=== PATIENT | male | born 1960 | race Caucasian/White ===

== ENCOUNTER 2025-03-16 12:09 | Outpatient (AMB) | payer OTHER, SELFPAY ==
--- NOTE | 2025-03-16 12:12 | A.OFFPC_ITS ---
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: No Accompanied by: Self / Same As Patient Allergies No Known Allergies Allergy (Verified 03/16/25 12:15) Medication List - Last Reconciled 03/16/25 [facility] mg PO DAILY Tobacco use date assessed: 03/16/25 Fall risk assessment: No Falls in past year Last assessed Fall Risk: 03/16/25 Dental Screening Dental Screen Date: 03/16/25 Did you have a dental visit in the last 12 months?: No Did you have a dental problem in the last 6 months where you did not have access to dental care?: No Was dental information given to patient?: Patient declined HPI ENVIRONMENTAL COMPLIANCE SPECIALIST-PE HPI Details History of Present Illness The patient is a 65-year-old male presenting for a routine wellness visit and preventative care. He has a history of hepatitis C, which was diagnosed and apparently cleared. ? following a transfusion when he was younger. The condition has since resolved after seeing a liver specialist and undergoing a biopsy. A viral load will be obtained to confirm clearance. The patient has a history of smoking, having quit over 15 years ago, but he currently uses vaping products. He denies experiencing any chest pain, dyspnea, abdominal pain, hematochezia, constipation, or diarrhea. He is unsure about the timing of his next colonoscopy, which was previously performed at [place]. He denies any personal history of pancreatic or prostate cancer, and a PSA screening is planned as part of his preventative care. Health Maintenance - PSA screening planned - Colonoscopy follow-up to be determined Social History - Tobacco use: Former smoker, currently vapes Review of Systems - Cardiovascular: Denies chest pain - Respiratory: Denies dyspnea - Gastrointestinal: Denies abdominal rachel n, hematochezia, constipation, diarrhea denies any urinary issues, fevers, chills Physical Exam General: Cooperative, healthy appearing, comfortable, no acute distress and well developed Orientation: Patient oriented x3 Limitations: No limitations Head: Normal to inspection Ears: Hearing grossly normal bilaterally Nose: Normal external nose present Face and sinus: Normal facial exam Eyes: Appearance normal, both eyes and all related structures Neck: Normal visual inspection and Yes full ROM Respiratory: Normal respiratory effort and able to speak in complete sentences. Clear to auscultation bilaterally Cardiovascular: Regular rate and rhythm. Normal S1 and S2 GI: Normal to inspection. Soft to palpation and nontender : Testicles without masses/lesions and no hernias appreciated Skin: No rashes or lesions noted Neuro: Patient oriented x3 Extremities: Normal to inspection Results Plan The patient will undergo a PSA screening as part of his preventative care measures. This is to monitor for any potential prostate issues given his age and risk factors. A follow-up on his last colonoscopy is necessary to determine the appropriate timing for his next screening, as he is unsure of when it was last performed. He is encouraged to continue with regular health maintenance and to schedule fa sting labs in the near future to monitor his overall health status. Discussion Notes I discussed with the patient the importance of continuing with preventative care measures, including the PSA screening and determining the timing for his next colonoscopy. We also talked about the need for fasting labs to monitor his health status. I encouraged him to maintain regular health check-ups and to ankita ch out if he experiences any new symptoms or concerns. Patient Instructions - Schedule a PSA screening as discussed. - Follow up on the timing of your next c olonoscopy. - Plan to have fasting labs done soon. - Continue with regular health check-ups and contact us if you have any new symptoms or concerns. [facility] Surgical History History of ankle surgery Family History Mother No problems noted. Father No problems noted. Social History Housing: Apartment Patient Tobacco Use Status: Former Tobacco user Tobacco use type: Cigarette Cigarette Packs Per Day: 2 Cigarettes Per Day: 40 e-Cigarette/Vaping Use: Currently Using service: No Current occupational status: retired Current occupational exposures/hazards: No Cognitive needs: No Hearing needs: No Vision needs: No Questionnaire PHQ-9 Over the last 2 weeks, how often have you been bothered by any of the following problems? 1. Little interest or pleasure in doing things: not at all 2. Feeling down, depressed, or hopeless: not at all 3. Trouble falling or staying asleep, or sleeping too much: not at all 4. Feeling tired or having little energy: not at all 5. Poor appetite or overeating: not at all 6. Feeling bad about yourself - or that you are a failure or have let yourself or your family down: not at all 7. Trouble concentrating on things, such as reading the newspaper or watching television: not at all 8. Moving or speaking so slowly that other people could have noticed. Or the opposite - being so fidgety or restless that you have been moving around a lot more than usual: not at all 9. Thoughts that you would be better off or of hurting yourself in some way: not at all Total score: 0 Depression Screening Interpretation: Negative Depression Screening Done: Yes 87774 - PHQ-9 Billing: Yes Source: Developed by Drs. Akira Walker, Kym Parrish, Nba Westfall and colleagues, with an educational ethan from [employer]. Thrive Questionnaire Date Thrive assessed: 03/16/25 I am a: Patient What is your living situation today?: I have a steady place to live Within the past 12 months, did the food you bought not last and you didn't have the money to get more?: Often true Within the past 12 months, did you worry whether your food would run out before you got money to buy more?: Often true Do you have trouble paying for medicines?: No Do you have trouble getting transportation to medical appointments?: No Do you have trouble paying your heating and electricity bill?: No Do you have trouble taking care of your child, family member or friend?: No Do you have trouble with day-to-day activities such as bathing, preparing meals, shopping, managing finances, etc.?: No Are you currently unemployed and looking for a job?: No Are you interested in more education?: No Please select the resources that you would like help with: None Currently or been in a relationship where the following occur: No concerns reported THRIVE Score: 2 AUDIT C Alcohol Use Questionnaire (AUDIT-C) 1. How often do you have a drink containing alcohol?: Never 3. How often do you have six or more drinks on one occasion?: Never Total Score: 0 Score Reviewed/Action Taken: Yes SUSIE-7 AMB Questionnaire SUSIE-7 Date SUSIE - 7 assessed: 03/16/25 Feeling nervous, anxious, or on edge: 0 = Not at all Not being able to stop or control worryin = Not at all Worrying too much about different things: 0 = Not at all Trouble relaxin = Not at all Being so restless that it is hard to sit still: 0 = Not at all Becoming easily annoyed or irritable: 0 = Not at all Feeling afraid as if something awful might happen: 0 = Not at all Total SUSIE-7 score (0-4 normal; 5-9 mild; 10-14 moderate; 15-21 severe): 0 Source: Developed by Drs. Akira Walker, Kym Parrish, Nba Westfall and colleagues, with an educational ethan from [employer]. SUSIE-7 Assessment Billing SUSIE-7 Assessment Tool: SUSIE-7 Assessment 63426 Physical exam (Primary Care) Vital Signs: Last Vital Signs Pulse 79 03/16/25 12:14 Resp 16 03/16/25 12:14 BP 118/74 03/16/25 12:14 Pulse Ox 98 03/16/25 12:14 Oxygen Delivery Method Room Air 03/16/25 12:14 BMI result Body Mass Index 27.8 Tobacco/Smoking Status: Tobacco use Status Tobacco use date assessed 03/16/25 03/16/25 12:24 Patient Tobacco Use Status Former Tobacco user 03/16/25 12:21 Tobacco use type Cigarette 03/16/25 12:21 e-Cigarette/Vaping Use Currently Using 03/16/25 12:21 PHQ-9: PHQ-9 Score PHQ-9: Total score 0 03/16/25 12:40 Depression Screening Interpretation: Negative Thrive Assessment: Date of Thrive Assessment Date Thrive assessed 03/16/25 03/16/25 12:40 Currently or been in a relationship where the following occur: No concerns reported Coding Level of Care Code New Pt Prev Care >65yr (87979) Diagnoses Physical exam Z00.00 Screening for prostate cancer Z12.5 Vitamin D deficiency E55.9 Hepatitis C B19.20 Additional Codes SUSIE-7 Assessment Billing - SUSIE-7 Assessment Tool: SUSIE-7 Assessment 54191 ([id number]) PHQ-9 - 43718 - PHQ-9 Billing: Yes ([id number]) Assessment & Plan Assessment & Plan (1) Physical exam: Code(s): Z00.00 - Encounter for general adult medical examination without abnormal findings Category: Medical (2) Screening for prostate cancer: Code(s): Z12.5 - Encounter for screening for malignant neoplasm of prostate Category: Medical (3) Vitamin D deficiency: Code(s): E55.9 - Vitamin D deficiency, unspecified Category: Medical (4) Hepatitis C: Code(s): B19.20 - Unspecified viral hepatitis C without hepatic coma Category: Medical Plan . Orders: Orders Complete Blood Count Auto Diff Today Z00.00 - Encounter for general adult medical examination without abnormal findings Comprehensive [place]. Panel Fast Today Z00.00 - Encounter for general adult medical examination without abnormal findings UA CC w/rflx Micro + Cult Today Z00.00 - Encounter for general adult medical examination without abnormal findings Prostate Specific Antigen Scr Today Z12.5 - Encounter for screening for malignant neoplasm of prostate Vitamin D 25-OH Total Today E55.9 - Vitamin D deficiency, unspecified Hepatitis A,B,C Profile Today B19.20 - Unspecified viral hepatitis C without hepatic coma Hepatitis C Genotype Today B19.20 - Unspecified viral hepatitis C without hepatic coma TSH reflex Free T4 Today Z00.00 - Encounter for general adult medical examination without abnormal findings Lipid Panel Today Z00.00 - Encounter for general adult medical examination without abnormal findings Hepatitis C Viral Load Today B19.20 - Unspecified viral hepatitis C without hepatic coma
[2025-03-16 12:14] VITALS: BP 118/74; PULSE 79; RESP 16; O2SAT 98; BMI 27.8
== END 2025-03-16 13:43 | disposition home or self-care (01) ==
LOC: HO.HMCC 12:10
PROVIDERS: Visit Provider Nurse Practitioner Family
DX: Z00.00 Encounter for general adult medical examination without abnormal findings (principal); Z12.5 Encounter for screening for malignant neoplasm of prostate; E55.9 Vitamin D deficiency, unspecified; B19.20 Unspecified viral hepatitis C without hepatic coma

== ENCOUNTER → 2025-03-16 12:09 | Outpatient (BNVA) | payer OTHER, SELFPAY | PROVIDERS: Visit Provider Nurse Practitioner Family | DX: Z00.00 Encounter for general adult medical examination without abnormal findings (principal); E55.9 Vitamin D deficiency, unspecified; B19.20 Unspecified viral hepatitis C without hepatic coma; F17.290 Nicotine dependence, other tobacco product, uncomplicated | CPT/HCPCS: 96127; 99387 ==

== ENCOUNTER 2025-03-23 08:02 | Outpatient (REF) | payer OTHER, SELFPAY ==
[2025-03-23 10:21] LABS: Appearance Urine Clear; Glucose Urine UA Negative (Negative); PH 6.0 (5.0-9.0); Specific Gravity - Urine 1.010 (1.005-1.025); UMIC TRIGGER UACC YES
[2025-03-23 10:26] LABS: MANUAL DIFF FLAG NO
[2025-03-23 10:38] LABS: Hematocrit 43.3 % (42.0-52.0); Hemoglobin 15.1 g/dl (14.0-18.0); Imm Gran Abs Auto 0.03 X10*3/uL (0.00-0.03); Imm Gran Pct Auto 0.4 % (0.0-0.4); Lymphocytes Absolute Auto 1.8 X10*3/uL (1.2-4.9); Mean Corpuscular HGB Conc 34.9 g/dl (31.0-36.0); Mean Corpuscular Hemoglobin 30.6 pg (27.0-33.0); Mean Corpuscular Volume 87.8 fL (80.0-98.0); NRBC Abs Auto 0.000 X10*3/uL (0.0-0.012); NRBC Pct Auto 0.0 /100WBC (0.0-0.2); Platelet Count 246 X10*3/uL (160-400); Red Blood Count 4.93 X10*6/uL (4.60-5.80); White Blood Count 7.2 X10*3/uL (4.8-10.8)
[2025-03-23 11:17] LABS: Alanine Aminotransferase 20 U/L (0-40); Albumin Level 4.5 g/dL (3.5-5.0); Alkaline Phosphatase 53 U/L (39-117); Anion Gap 11 (12-20); Aspartate Amino Transferase 34 U/L (5-37); Blood Urea Nitrogen 11 mg/dL (9-16); Calcium 9.3 mg/dL (8.4-10.2); Carbon Dioxide 28 mmol/L (22-29); Chloride 107 mmol/L (96-108); Cholesterol 196 mg/dL (<200); Estimated Glomerular Filt Rate > 60; HDL Cholesterol 38 mg/dL (>40); Potassium 4.2 mmol/L (3.3-5.1); Sodium 142 mmol/L (135-145); Total Protein 7.1 g/dL (6.5-8.0); Triglycerides 178 mg/dL (<150)
[2025-03-23 11:35] LABS: HBS Num1 0.18 mIU/mL (0-7.99); HBc Num1 0.06 S/CO (0.00-0.79); HBsAGNum1 0.42 S/CO (0.00-0.99); Hepatitis A Antibody IgM 0.15 Index (0-0.79); Hepatitis B Surface Antigen Negative (Negative); ~HepC Num1 9.20 S/CO (0.00-0.79); ~Hepatitis A Antibody IgM Nonreactive (Nonreactive); ~Hepatitis B Surface Antibody NONREACTIVE (Nonreactive); ~Hepatitis C Antibody Reactive (Nonreactive)
[2025-03-24 15:38] LABS: HCV RNA PCR Qn <1.18 NOT DETECTED Log IU/mL (NOT DETECTED); HCV RNA PCR Qn <15 NOT DETECTED IU/mL (NOT DETECTED)
== END 2025-03-23 08:03 | disposition home or self-care (01) ==
LOC: HO.HMGCLDS 08:02
PROVIDERS: PCP Nurse Practitioner Family; Visit Provider Nurse Practitioner Family
DX: Z00.00 Encounter for general adult medical examination without abnormal findings (principal); Z12.5 Encounter for screening for malignant neoplasm of prostate; B19.20 Unspecified viral hepatitis C without hepatic coma; E55.9 Vitamin D deficiency, unspecified
CPT/HCPCS: 36415; 80053; 80061; 81001; 82306; 84153; 84443; 85025; 86704; 86706; 86709; 86803; 87340; 87522

== ENCOUNTER 2025-03-26 07:45 | Outpatient (REF) | payer OTHER, SELFPAY | END 2025-03-26 07:46 | disposition home or self-care (01) | LOC: HO.HMGCLDS 07:45 | PROVIDERS: PCP Nurse Practitioner Family; Visit Provider Nurse Practitioner Family | DX: R31.29 Other microscopic hematuria (principal) | CPT/HCPCS: 87086; 88112 ==

== ENCOUNTER 2025-06-02 10:57 | Outpatient (REF) | payer OTHER, SELFPAY | END 2025-06-02 10:58 | disposition home or self-care (01) | LOC: HO.LAB 10:57 | PROVIDERS: PCP Nurse Practitioner Family; Referring Provider Nurse Practitioner Family; Visit Provider Nurse Practitioner Family | DX: R31.29 Other microscopic hematuria (principal); R31.0 Gross hematuria; R39.15 Urgency of urination; Z13.89 Encounter for screening for other disorder; Z87.891 Personal history of nicotine dependence | CPT/HCPCS: 81003; 88112; 99202 ==

== ENCOUNTER 2025-06-02 10:57 | Outpatient (AMB) | payer OTHER, SELFPAY ==
--- NOTE | 2025-06-02 10:58 | MHC.OFFVIS ---
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 Sommers. He has a past medical history of GERD. In discussion with the patient today he reports following up with his PCP at which time he was noted to have microscopic hematuria and recommendations were made for urology referral for further assessment evaluation. When asked he does report a previous history of nicotine dependence. He reports smoking a pack per day for over 20 years however quit 5-7 years ago. When asked he denies any bothersome urinary issues. He denies urinary urgency, urinary frequency, incontinence, nocturia, gross/visible hematuria, dysuria, foul smelling urine, changes to urinary stream, flank pain, fever, and or chills. He is happy with his current voiding parameters. In office urinalysis results reviewed with the patient today trace microscopic hematuria otherwise within normal limits. We did discussed at length potential causes of microscopic hematuria as well as further interventions and risks and benefits of these interventions.I discussed reasons for blood in the urine may include but are not limited to kidney stones, cancer in the urinary tract, BPH, kidney stone disease or inflammatory conditions of the urinary tract. I have discussed workup to include cystoscopy evaluation. In review of patient's chart it appears PSA 04/13 1.1. All questions were answered. He otherwise offers no other issues or concerns at this time. [facility] Surgical History History of ankle surgery Family History Mother No problems noted. Father No problems noted. Social History Housing: Apartment Patient Tobacco Use Status: Former Tobacco user Tobacco use type: Cigarette Cigarette Packs Per Day: 2 Cigarettes Per Day: 40 e-Cigarette/Vaping Use: Currently Using service: No Current occupational status: retired Current occupational exposures/hazards: No Cognitive needs: No Hearing needs: No Vision needs: No Review of Systems Const All systems reviewed & are unremarkable except as noted in HPI and below Physical Exam Const General: cooperative, healthy appearing, comfortable, no acute distress, well developed, alert and awake Orientation/consciousness: patient oriented x3 Limitations: no limitations HEENT Head: Yes normal to inspection, Yes normocephalic and Yes atraumatic Ears: hearing grossly normal bilaterally Eyes General: appearance normal, both eyes and all related structures Neck Neck: Yes normal visual inspection and Yes trachea midline Chest Chest palpation & inspection: normal inspection of the chest Resp Effort & Inspection: normal respiratory effort and able to speak in complete sentences Cardio Rate: regular rate GI Inspection: Yes normal to inspection General: Yes no CVA tenderness Back/Spine/Pelvis Back: no CVA tenderness Skin General skin exam: no rashes or lesions noted Neuro General: patient oriented x3 Extrem General: Yes normal to inspection Psych Appearance: grossly normal and well kempt Mental Status: mental status grossly normal Speech and movement: Normal speech and movement present and Clear speech present Affect: normal affect Attitude: cooperative Thought process: Normal thought process present Thought content: Normal thought content present Insight: Fair insight present (Psych) Judgement: Fair judgement present (Psych) Results AMB Urinalysis, Automated UA Leukoctes 0 Fermin/uL Last Edit by NANO Hernandez on 06/02/25 11:51 UA Nitrite Negative Last Edit by NANO Hernandez on 06/02/25 11:51 UA Urobilinogen 0.2 mg/dL Last Edit by NANO Hernandez on 06/02/25 11:51 UA Protein 0 mg/dL Last Edit by NANO Hernandez on 06/02/25 11:51 UA pH 6.0 Last Edit by NANO Hernandez on 06/02/25 11:51 UA Blood 10 Travis/uL Last Edit by NANO Hernandez on 06/02/25 11:51 UA Specific [place] 1.015 Last Edit by NANO Hernandez on 06/02/25 11:51 UA Ketone Negative Last Edit by NANO Hernandez on 06/02/25 11:51 UA Bilirubin 0 mg/dL Last Edit by NANO Hernandez on 06/02/25 11:51 UA Glucose 0 mg/dL Last Edit by NANO Hernandez on 06/02/25 11:51 Results Reviewed Results Reviewed: Laboratory Last Values Urine pH (Auto) 6.0 06/02/25 11:50 Specific [place] (Auto) 1.015 06/02/25 11:50 Urine Protein (Auto) 0 mg/dL 06/02/25 11:50 Glucose (UA)(Auto) 0 mg/dL 06/02/25 11:50 Urine Ketones (Auto) Negative 06/02/25 11:50 Urine Blood (Auto) 10 Travis/uL 06/02/25 11:50 Urine Nitrite (Auto) Negative 06/02/25 11:50 Urine Bilirubin (Auto) 0 mg/dL 06/02/25 11:50 Urine Urobilinogen (Auto) 0.2 mg/dL 06/02/25 11:50 Leukocyte Esterase (Auto) 0 Fermin/uL 06/02/25 11:50 Assessment & Plan Assessment & Plan (1) Microscopic hematuria: Code(s): R31.29 - Other microscopic hematuria Category: Medical (2) Hx of nicotine dependence: Code(s): Z87.891 - Personal history of nicotine dependence Category: Medical Plan In office urinalysis results with the patient today; as noted above; will send for urine cytology. Will obtain CT urogram for further assessment evaluation. BUN and creatinine ordered for imaging. Currently denies any bothersome urinary issues or concerns. He reports be happy with current voiding parameters. Recent PSA results reviewed with the patient today; as noted above. We did discussed potential causes of microscopic hematuria as well as further workup in risks and benefits of these interventions. He would like to think about cystoscopy; information provided. Follow-up in 1-3 months with imaging and labs; or sooner with any issues, concerns, and or questions. Orders: Orders Urine Cytology Today R31.29 - Other microscopic hematuria AMB Urinalysis Automated Today Z13.9 - Encounter for screening, unspecified CT urogram Today R31.0 - Gross hematuria Blood Urea Nitrogen Today R39.15 - Urgency of urination Creatinine Today R39.15 - Urgency of urination Patient Instructions: The patient had an opportunity to ask questions regarding the treatment plan. All questions were answered. Physical exam, labs, and imaging were discussed and reviewed in detail. As well as risks, benefits, and discussion of treatment choices. No major barriers to understanding were identified. The patient expressed understanding and agreement with the above treatment plan. The patient was made aware they should contact our office by phone for worsening of their current condition, the appearance of new symptoms, or with any questions or concerns. Compliance is encouraged with any medications and follow up testing that is ordered. It is a privilege to be allowed the opportunity to participate in? your urological care.? Again, if you have any questions or concerns If you have any questions or concerns please do not hesitate to contact me. The office is [phone]. This note is constructed using voice recognition software. While every effort has been made to ensure accuracy loan review officer errors may have been included. Yours sincerely, GARCIA Medina Coding Level of Care Code New Pt Level 3 (80821) Diagnoses Microscopic hematuria R31.29 Hx of nicotine dependence Z87.891
== END 2025-06-02 11:37 | disposition home or self-care (01) ==
LOC: HO.HUSH 10:57
PROVIDERS: PCP Nurse Practitioner Family; Referring Provider Nurse Practitioner Family; Visit Provider Nurse Practitioner Family
DX: R31.29 Other microscopic hematuria (principal); Z87.891 Personal history of nicotine dependence; Z13.9 Encounter for screening, unspecified
CPT/HCPCS: 99203

== ENCOUNTER 2025-07-20 07:13 | Outpatient (REF) | payer OTHER, SELFPAY ==
--- NOTE | ~2025-07-20 | CT_ITS ---
EXAMINATION: CT ABDOMEN AND PELVIS WITHOUT AND WITH CONTRAST CLINICAL INFORMATION: Gross hematuria COMPARISON: Previous abdominal ultrasound most recent September 2016 TECHNIQUE: Noncontrast CT of the abdomen and pelvis is performed followed by split bolus contrast-enhanced images using 85 mL Omnipaque 350 contrast. Postcontrast imaging is performed during the combined nephrogram and excretion phase. Sagittal and coronal reformatted images were obtained on the technologist's workstation for both the precontrast and postcontrast phases. This CT examination was performed using dose optimization techniques as appropriate, variously including the following: *Automated exposure control *Adjustment of mA and/or kV according to patient size (this includes techniques or standardized protocols for targeted exams where dose is matched to indication/reason for exam; i.e. extremities or head) *Use of iterative reconstruction technique FINDINGS: LUNG BASES: The visualized lung bases are unremarkable. LIVER, GALLBLADDER, AND BILIARY TREE: The liver is normal in size and shape. The liver is low in attenuation suggestive of fatty infiltration.. No focal hepatic lesion or biliary ductal dilatation is present. Small gallstones. Gallbladder otherwise normal. PANCREAS: Unremarkable. SPLEEN: Small calcifications in the spleen. This probably represents old granulomatous disease. ADRENAL GLANDS: Nodular thickening of the left adrenal gland. There is also a small calcification. Hounsfield units precontrast measure -6.7 suggestive of benign adenomatous hyperplasia. The right adrenal gland is normal. KIDNEYS AND URETERS: The kidneys are normal in size, shape, and attenuation. Tiny high attenuation focus in the upper pole of the right kidney questionable for punctate 1 mm sized right renal stone for example axial image 54 series 5. 1 cm cyst exophytic to the lateral lower pole right kidney for example axial image 25 series 3. No renal mass or hydronephrosis, hydroureter, or filling defect. BLADDER: Not optimally distended and not well evaluated. There is lobulated soft tissue at the base of the bladder. It is uncertain whether this is related to the prostate gland. The prostate gland is slightly enlarged measuring 4.1 x 4.2 x 4.1 cm in dimension and heterogeneous in attenuation. GASTROINTESTINAL TRACT: Diverticulosis of the colon. No evidence of diverticulitis. The small and large bowel are otherwise unremarkable. The appendix is unremarkable. Underdistended stomach. There may be a small esophageal hernia. ABDOMINAL WALL: No significant hernia is appreciated. LYMPH NODES: Small retroperitoneal lymph nodes. No enlarged lymph nodes. VASCULAR: Atherosclerotic disease. No aneurysm. OSSEUS STRUCTURES: Degenerative changes of the spine. CT/CT urogram IMPRESSION: Small right renal cyst. Question tiny punctate 1 mm right renal stone. Underdistended bladder not optimally evaluated. Abnormal lobulated soft tissue at the base of the bladder which may represent invagination of the prostate gland into the base of the bladder. Cannot exclude bladder mass and correlation with cystoscopy recommended. Diverticulosis of the colon. Fatty infiltration of the liver. Gallstones. Electronically signed by: Nadeen Ellis MD 07/20/2025 08:38 AM EST
[2025-07-20] MEDS: iohexoL 350 MG/ML 100 ML INFUS..BTL IV (07:54)
[2025-07-20 12:14] LABS: Creatinine POC 0.7 mg/dL (0.5-1.4); GFR POC > 60
== END 2025-07-20 07:14 | disposition home or self-care (01) ==
LOC: HO.CT 07:13
PROVIDERS: PCP Nurse Practitioner Family; Visit Provider Nurse Practitioner Family
DX: R31.0 Gross hematuria (principal)
CPT/HCPCS: 74178; 82565; Q9967

== ENCOUNTER → 2025-07-20 07:17 | Outpatient (BNV) | payer OTHER, SELFPAY | PROVIDERS: PCP Nurse Practitioner Family; Visit Provider Radiology Diagnostic Radiology | DX: K57.30 Diverticulosis of large intestine without perforation or abscess without bleeding (principal); N28.1 Cyst of kidney, acquired; K80.20 Calculus of gallbladder without cholecystitis without obstruction; K76.0 Fatty (change of) liver, not elsewhere classified | CPT/HCPCS: 74178 ==

== ENCOUNTER 2025-08-10 08:51 | Outpatient (AMB) | payer OTHER, SELFPAY ==
--- NOTE | 2025-08-10 09:01 | A.OFFVIS_ITS ---
Intake Visit Reasons: 2m/CT/labs/UA Intake Note: Patient is present for 2 mo follow up for micro hematuria Urology Medication:NONE Antibiotic Allergy:NONE Blood Thinner:NONE Imaging: CT Urogram 07/20/25 Labs done : Cytology 06/03/25 Facility Maintenance Helper Required: No Accompanied by: Self / Same As Patient Allergies No Known Allergies Allergy (Verified 08/10/25 09:53) Medication List - Last Reconciled 08/10/25 by MERCEDES MedinaP- omeprazole 20 mg PO DAILY HPI Comments Details: Dwayne is a very pleasant 65-year-old male patient of Dr. Sommers. He has a past medical history of GERD. He presents to the office today for follow-up of his microscopic hematuria. In discussion with the patient today reports to be doing and feeling well. He denies having had any bothersome urinary issues or concerns since his last office visit here. Most recent CT urogram results reviewed with the patient today. Small right renal cysts. Question tiny punctate 1 mm right renal stone. Underdistended bladder not optimally evaluated. Abnormal lobulated soft tissue at the base of the bladder which could represent invagination of the prostate gland into the base of the bladder per radiology report. We did discussed at length potential causes of microscopic hematuria in the setting of nicotine dependence as patient does report a previous smoking history of cigarettes. He reports smoking a pack per day for over 20 years however quit 7-10 years ago. When asked he denies any bothersome urinary issues. He denies urinary urgency, urinary frequency, incontinence, nocturia, gross/visible hematuria, dysuria, foul smelling urine, changes to urinary stream, flank pain, fever, and or chills. He is happy with his current voiding parameters. In office urinalysis results reviewed with the patient today trace microscopic hematuria otherwise within normal limits. We did discussed at length potential causes of microscopic hematuria as well as further interventions and risks and benefits of these interventions. I discussed reasons for blood in the urine may include but are not limited to kidney stones, cancer in the urinary tract, BPH, kidney stone disease or inflammatory conditions of the urinary tract. I have discussed workup to include cystoscopy evaluation. In review of patient's chart it appears PSA 04/13 1.1. All questions were answered. He otherwise offers no other issues or concerns at this time. Urine cytology: 04/13 & 06/13 Negative for high-grade urothelial carcinoma. [facility] Surgical History History of ankle surgery Family History Mother No problems noted. Father No problems noted. Social History Housing: Apartment Patient Tobacco Use Status: Former Tobacco user Tobacco use type: Cigarette Cigarette Packs Per Day: 2 Cigarettes Per Day: 40 e-Cigarette/Vaping Use: Currently Using service: No Current occupational status: retired Current occupational exposures/hazards: No Cognitive needs: No Hearing needs: No Vision needs: No Review of Systems Const All systems reviewed & are unremarkable except as noted in HPI and below Physical Exam Const General: cooperative, healthy appearing, comfortable, no acute distress, well developed, alert and awake Orientation/consciousness: patient oriented x3 Limitations: no limitations HEENT Head: Yes normal to inspection, Yes normocephalic and Yes atraumatic Ears: hearing grossly normal bilaterally Eyes General: appearance normal, both eyes and all related structures Neck Neck: Yes normal visual inspection and Yes trachea midline Chest Chest palpation & inspection: normal inspection of the chest Resp Effort & Inspection: normal respiratory effort and able to speak in complete sentences Cardio Rate: regular rate GI Inspection: Yes normal to inspection General: Yes no CVA tenderness Back/Spine/Pelvis Back: no CVA tenderness Skin General skin exam: no rashes or lesions noted Neuro General: patient oriented x3 Extrem General: Yes normal to inspection Psych Appearance: grossly normal and well kempt Mental Status: mental status grossly normal Speech and movement: Normal speech and movement present and Clear speech present Affect: normal affect Attitude: cooperative Thought process: Normal thought process present Thought content: Normal thought content present Insight: Fair insight present (Psych) Judgement: Fair judgement present (Psych) Results AMB Urinalysis, Automated UA Leukoctes 15 Fermin/uL Last Edit by NANO Park on 08/10/25 09:07 UA Nitrite Negative Last Edit by NANO Park on 08/10/25 09:07 UA Urobilinogen 0.2 mg/dL Last Edit by Taniya Colon, CCMA on 08/10/25 09:07 UA Protein 15 mg/dL Last Edit by Taniya Colon, CCMA on 08/10/25 09:07 UA pH 5.5 Last Edit by Taniya Colon, CCMA on 08/10/25 09:07 UA Blood 10 Travis/uL Last Edit by Taniya Colon, CCMA on 08/10/25 09:07 UA Specific [place] 1.025 Last Edit by Taniya Colon, CCMA on 08/10/25 09:0 7 UA Ketone Negative Last Edit by Taniya Colon, CCMA on 08/10/25 09:07 UA Bilirubin 0 mg/dL Last Edit by Taniya Colon, CCMA on 08/10/25 09:07 UA Glucose 0 mg/dL Last Edit by Taniya Colon, CCMA on 08/10/25 09:07 Results Reviewed Results Reviewed: Laboratory Last Values Urine pH (Auto) 5.5 08/10/25 09:06 Specific [place] (Auto) 1.025 08/10/25 09:06 Urine Protein (Auto) 15 mg/dL 08/10/25 09:06 Glucose (UA)(Auto) 0 mg/dL 08/10/25 09:06 Urine Ketones (Auto) Negative 08/10/25 09:06 Urine Blood (Auto) 10 Travis/uL 08/10/25 09:06 Urine Nitrite (Auto) Negative 08/10/25 09:06 Urine Bilirubin (Auto) 0 mg/dL 08/10/25 09:06 Urine Urobilinogen (Auto) 0.2 mg/dL 08/10/25 09:06 Leukocyte Esterase (Auto) 15 Fermin/uL 08/10/25 09:06 Date of Service: 07/20/25 Procedure(s): CT urogram EXAMINATION: CT ABDOMEN AND PELVIS WITHOUT AND WITH CONTRAST CLINICAL INFORMATION: Gross hematuria COMPARISON: Previous abdominal ultrasound most recent September 2016 TECHNIQUE: Noncontrast CT of the abdomen and pelvis is performed followed by split bolus contrast-enhanced images using 85 mL Omnipaque 350 contrast. Postcontrast imaging is performed during the combined nephrogram and excretion phase. Sagittal and coronal reformatted images were obtained on the technologist's workstation for both the precontrast and postcontrast phases. This CT examination was performed using dose optimization techniques as appropriate, variously including the following: *Automated exposure control *Adjustment of mA and/or kV according to patient size (this includes techniques or standardized protocols for targeted exams where dose is matched to indication/reason for exam; i.e. extremities or head) *Use of iterative reconstruction technique FINDINGS: LUNG BASES: The visualized lung bases are unremarkable. LIVER, GALLBLADDER, AND BILIARY TREE: The liver is normal in size and shape. The liver is low in attenuation suggestive of fatty infiltration.. No focal hepatic lesion or biliary ductal dilatation is present. Small gallstones. Gallbladder otherwise normal. PANCREAS: Unremarkable. SPLEEN: Small calcifications in the spleen. This probably represents old granulomatous disease. ADRENAL GLANDS: Nodular thickening of the left adrenal gland. There is also a small calcification. Hounsfield units precontrast measure -6.7 suggestive of benign adenomatous hyperplasia. The right adrenal gland is normal. KIDNEYS AND URETERS: The kidneys are normal in size, shape, and attenuation. Tiny high attenuation focus in the upper pole of the right kidney questionable for punctate 1 mm sized right renal stone for example axial image 54 series 5. 1 cm cyst exophytic to the lateral lower pole right kidney for example axial image 25 series 3. No renal mass or hydronephrosis, hydroureter, or filling defect. BLADDER: Not optimally distended and not well evaluated. There is lobulated soft tissue at the base of the bladder. It is uncertain whether this is related to the prostate gland. The prostate gland is slightly enlarged measuring 4.1 x 4.2 x 4.1 cm in dimension and heterogeneous in attenuation. GASTROINTESTINAL TRACT: Diverticulosis of the colon. No evidence of diverticulitis. The small and large bowel are otherwise unremarkable. The appendix is unremarkable. Underdistended stomach. There may be a small esophageal hernia. ABDOMINAL WALL: No significant hernia is appreciated. LYMPH NODES: Small retroperitoneal lymph nodes. No enlarged lymph nodes. VASCULAR: Atherosclerotic disease. No aneurysm. OSSEUS STRUCTURES: Degenerative changes of the spine. IMPRESSION: Small right renal cyst. Question tiny punctate 1 mm right renal stone. Underdistended bladder not optimally evaluated. Abnormal lobulated soft tissue at the base of the bladder which may represent invagination of the prostate gland into the base of the bladder. Cannot exclude bladder mass and correlation with cystoscopy recommended. Diverticulosis of the colon. Fatty infiltration of the liver. Gallstones. Assessment & Plan Assessment & Plan (1) Microscopic hematuria: Code(s): R31.29 - Other microscopic hematuria Category: Medical (2) Hx of nicotine dependence: Code(s): Z87.891 - Personal history of nicotine dependence Category: Medical (3) Renal cyst: Code(s): N28.1 - Cyst of kidney, acquired Category: Medical (4) Nephrolithiasis: Code(s): N20.0 - Calculus of kidney Category: Medical Plan In office urinalysis results reviewed with the patient today; as above; will send cytology. Most recent CT urogram results reviewed with the patient today; as noted above. Previous urine cytology results reviewed with the patient today; as noted above. We did discuss again and reviewed potential causes of microscopic hematuria as well as further interventions and risks and benefits of these interventions. We did discussed in office cystoscopy; risks and benefits. We will continue with surveillance monitoring at this time. All questions were answered. We did discussed importance of adequate hydration relation to nephrolithiasis as well as overall health and well-being. He currently denies any bothersome urinary issues or concerns. He reports be happy with current voiding parameters. Follow-up in 6 months with urinalysis; or sooner with any issues, concerns, and or questions. Orders: Orders AMB Urinalysis Automated Today N13.8 - Other obstructive and reflux uropathy, N40.1 - Benign prostatic hyperplasia with lower urinary tract symptoms Patient Instructions: The patient had an opportunity to ask questions regarding the treatment plan. All questions were answered. Physical exam, labs, and imaging were discussed and reviewed in detail. As well as risks, benefits, and discussion of treatment choices. No major barriers to understanding were identified. The patient expressed understanding and agreement with the above treatment plan. The patient was made aware they should contact our office by phone for worsening of their current condition, the appearance of new symptoms, or with any questions or concerns. Compliance is encouraged with any medications and follow up testing that is ordered. It is a privilege to be allowed the opportunity to participate in? your urological care.? Again, if you have any questions or concerns If you have any questions or concerns please do not hesitate to contact me. The office is [phone]. This note is constructed using voice recognition software. While every effort has been made to ensure accuracy agency service representative errors may have been included. Yours sincerely, RASHI Medina- Coding Level of Care Code Est Pt Level 3 (05387) Add On Problem Visit Only Diagnoses Microscopic hematuria R31.29 Hx of nicotine dependence Z87.891 Renal cyst N28.1 Nephrolithiasis N20.0
== END 2025-08-10 09:40 | disposition home or self-care (01) ==
LOC: HO.HUSH 08:51
PROVIDERS: PCP Nurse Practitioner Family; Visit Provider Nurse Practitioner Family
DX: R31.29 Other microscopic hematuria (principal); Z87.891 Personal history of nicotine dependence; N28.1 Cyst of kidney, acquired; N20.0 Calculus of kidney; N40.1 Benign prostatic hyperplasia with lower urinary tract symptoms; N13.8 Other obstructive and reflux uropathy
CPT/HCPCS: 99213

== ENCOUNTER → 2025-08-10 08:51 | Outpatient (BNVA) | payer OTHER, SELFPAY | PROVIDERS: PCP Nurse Practitioner Family; Visit Provider Nurse Practitioner Family | DX: N40.1 Benign prostatic hyperplasia with lower urinary tract symptoms (principal); R31.29 Other microscopic hematuria; N28.1 Cyst of kidney, acquired; N20.0 Calculus of kidney; N13.8 Other obstructive and reflux uropathy; Z87.891 Personal history of nicotine dependence | CPT/HCPCS: 81003; 99212 ==